=== PATIENT | male | born 1990 | race Caucasian/White ===

== ENCOUNTER 2022-08-25 08:39 | Emergency (ER) | payer MEDICAID ==
[~2022-08-25] VITALS: Ht 177.8 cm; Wt 65.9 kg
[2022-08-25 08:48] VITALS: BP 131/81
[2022-08-25 09:51] LABS: CLARITY,URINE SLIGHTLY CLOUDY (Clear); COLOR,URINE YELLOW (Yellow); GLUCOSE, URINE NEGATIVE (Neg); KETONES,URINE NEGATIVE (Neg); LEUKOCYTE ESTERASE ,URINE NEGATIVE (Neg); NITRITES, URINE NEGATIVE (Neg); OCCULT BLOOD,URINE NEGATIVE (Neg); PROTEIN,URINE NEGATIVE (Neg); UROBILINOGEN,URINE 0.2 E.U/dL (0.2-1.0)
[2022-08-25 10:07] LABS: UA COLLECTION TYPE CLN CATCH MIDSTREAM
[2022-08-25 10:08] LABS: AMORPHOUS PHOSPHATES 2+; BACTERIA,URINE NONE SEEN /HPF (Neg); RBC,URINE NONE SEEN /HPF (0-2); SQUAMOUS EPITHELIAL CELL,UR NONE SEEN /LPF (FEW); WBC,URINE 0-4 /HPF (0-4)
== END 2022-08-25 11:06 | disposition home or self-care (01) ==
LOC: ER 08:40
DX: R31.9 Hematuria, unspecified (principal); F17.200 Nicotine dependence, unspecified, uncomplicated
CPT/HCPCS: 81001; 99283

== ENCOUNTER 2023-01-11 01:02 | Emergency (ER) | payer MEDICAID ==
[~2023-01-11] VITALS: Ht 175.3 cm; Wt 68.2 kg
[2023-01-11 01:05] VITALS: RESP 16; TEMP 98.2
[2023-01-11] MEDS ORDERED: acetaminophen 325mg tablet PO ONE (05:45)
[2023-01-11] MEDS ORDERED: ACET-1025 PO (05:51)
[2023-01-11] MEDS ORDERED: CIPR7.5D TOP (05:51)
[2023-01-11 06:03] VITALS: BP 109/64; PULSE 60; O2SAT 98
== END 2023-01-11 06:30 | disposition home or self-care (01) ==
LOC: ER 01:03
DX: H60.92 Unspecified otitis externa, left ear (principal); F17.200 Nicotine dependence, unspecified, uncomplicated; Z72.89 Other problems related to lifestyle
CPT/HCPCS: 99283

== ENCOUNTER 2023-10-10 11:05 | Outpatient (CLI) | payer MEDICAID ==
[~2023-10-10 11:05] MED LIST: CIPR7.5D TOP
== END 2023-10-10 23:59 | disposition home or self-care (01) ==
LOC: RAD 11:05
PROVIDERS: ATTEND Family Medicine
DX: M54.50 Low back pain, unspecified (principal)
CPT/HCPCS: 72110